=== PATIENT | female | born 1955 | race Caucasian/White ===

== ENCOUNTER 2023-07-03 12:55 | Outpatient (CLI) | payer MEDICARE ==
--- NOTE | 2023-07-03 20:00 | DEXA Report ---
PROCEDURE: Dexa Spine and/or Hip INDICATIONS: POST MENOPAUSAL TECHNIQUE: Dual energy x-ray absorptiometry (DXA) was performed on a [employer] System. Regions measur ed are the AP Spine, femoral neck, and if needed forearm. COMPARISON: None FINDINGS: Lumbar Spine: Bone Mineral Density L1-L4 1.557 g/cm/cm,T score 2.9. Z score 2.4 Left Femoral Neck: Bone Mineral Density 1.031 g/cm/cm, T score -0.1. Z score 0.8. (T score greater or equal to -1.0: NORMAL) (T score from -1.1 to -2.4: OSTEOPENIA) (T score less than or equal to -2.5 to: OSTEOPOROSIS) Impression: By WHO criteria, this patient has normal bone density. Reviewed by: Nohelia Chang MD on 07/03/2023 7:59 PM PST Approved by: Nohelia Chang MD on 07/03/2023 7:59 PM PST Station ID: [id number]
== END 2023-07-03 12:56 | disposition home or self-care (01) ==
LOC: DI 12:55
PROVIDERS: ATTEND Nurse Practitioner Acute Care
DX: Z78.0 Asymptomatic menopausal state (principal)

== ENCOUNTER 2023-07-23 09:09 | Outpatient (CLI) | payer MEDICARE ==
[2023-07-23 16:02] LABS: ESTIMATED AVERAGE GLUCOSE 143 mg/dL (70-100); HEMOGLOBIN A1c% 6.6 % (4.27-6.07)
[2023-07-23 16:20] LABS: URIC ACID 6.3 mg/dL (2.3-6.6)
== END 2023-07-23 09:10 | disposition home or self-care (01) ==
LOC: LAB.S 09:09
PROVIDERS: ATTEND Nurse Practitioner Acute Care
DX: E78.1 Pure hyperglyceridemia (principal); M10.9 Gout, unspecified; Z13.1 Encounter for screening for diabetes mellitus
CPT/HCPCS: 36415; 83036; 84478; 84550

== ENCOUNTER 2023-09-03 13:05 | Outpatient (CLI) | payer MEDICARE ==
[2023-09-03 20:10] LABS: CREATININE,URINE 54.8 mg/dL; MICROALBUM/CREATININE RATIO,UR 85.8 ug/mg (<30.0); MICROALBUMIN,URINE 4.7 mg/dL
[2023-09-03 21:21] LABS: ESTIMATED AVERAGE GLUCOSE 137 mg/dL (70-100); HEMOGLOBIN A1c% 6.4 % (4.27-6.07)
== END 2023-09-03 13:06 | disposition home or self-care (01) ==
LOC: LAB.S 13:05
PROVIDERS: ATTEND Nurse Practitioner Acute Care
DX: E11.8 Type 2 diabetes mellitus with unspecified complications (principal)
CPT/HCPCS: 36415; 82043; 82570; 83036

== ENCOUNTER 2023-09-26 09:21 | Outpatient (CLI) | payer MEDICARE ==
--- NOTE | 2023-09-26 10:35 | CT Report ---
PROCEDURE: Sinus INDICATIONS: PANSINUSITIS TECHNIQUE: Noncontrast 3.0 mm axial images acquired from the frontal sinuses to the mid-sella, with coronal and sagittal reformats. For radiation dose reduction, the following was used: automated exposure control , adjustment of mA and/or kV according to patient size. COMPARISON: None. FINDINGS: Image quality: Excellent. Maxillary Sinuses: No bony remodeling or destruction. Sinuses are clear. Ethmoid Air Cells: No bony remodeling or destruction. Sinuses are clear. Sphenoid Sinuses: No bony remodeling or destruction. Sinuses are clear. Frontal Sinuses: No bony remodeling or destruction. Minimal mucosal thickening can be seen within th e inferior medial frontal sinuses Ostiomeatal Complexes: The ostiomeatal complexes are patent, yet they are constitutionally narrowed, with bilateral Noman cells. Miscellaneous: Visualized intra-orbital contents are normal. No ellen bullosa. No significant na tyler septal deviation. Degenerative change is seen involving the temporomandibular joints, left worse than right. IMPRESSION: No significant active paranasal sinus disease is seen. The ostiomeatal complexes are patent, yet they are constitutionally narrowed, with bilateral Noman c ells. Reviewed by: Hernan Lei MD on 09/26/2023 9:33 AM [facility] Approved by: Hernan Lei MD on 09/26/2023 9:33 AM [facility] Station ID: [id number]
== END 2023-09-26 09:22 | disposition home or self-care (01) ==
LOC: DI 09:21
PROVIDERS: ATTEND Otolaryngology
DX: J34.2 Deviated nasal septum (principal); R51.9 Headache, unspecified; J34.89 Other specified disorders of nose and nasal sinuses

== ENCOUNTER 2023-10-01 11:57 | Outpatient (CLI) | payer MEDICARE ==
[2023-10-01 15:12] LABS: THYROID STIMULATING HORMONE 0.93 uIU/mL (0.34-5.60)
== END 2023-10-01 11:58 | disposition home or self-care (01) ==
LOC: LAB.S 11:57
PROVIDERS: ATTEND Nurse Practitioner Acute Care
DX: Z13.29 Encounter for screening for other suspected endocrine disorder (principal)
CPT/HCPCS: 36415; 84443

== ENCOUNTER 2024-01-11 08:50 | Outpatient (CLI) | payer MEDICARE ==
[2024-01-11 15:12] LABS: BASOPHILS # (AUTO) 0.1 10^3/uL (0.0-0.1); BASOPHILS % (AUTO) 0.7 %; EOSINOPHILS # (AUTO) 0.2 10^3/uL (0.0-0.7); EOSINOPHILS % (AUTO) 2.7 %; HGB - HEMOGLOBIN 13.8 g/dL (12.0-16.0); LYMPHOCYTES # (AUTO) 2.1 10^3/uL (1.5-3.5); LYMPHOCYTES % (AUTO) 28.2 %; MEAN CORPUSCULAR HEMOGLOBIN 29.3 pg (27.0-31.0); MEAN CORPUSCULAR HGB CONC 32.1 g/dL (32.0-36.0); MEAN CORPUSCULAR VOLUME 91.3 fL (81.0-99.0); MEAN PLATELET VOLUME 11.2 fL (7.9-10.8); MONOCYTES # (AUTO) 0.7 10^3/uL (0.0-1.0); MONOCYTES % (AUTO) 9.3 %; NEUTROPHILS # (AUTO) 4.3 10^3/uL (1.5-6.6); NEUTROPHILS % (AUTO) 58.6 %; PLT - PLATELET COUNT 183 10^3/uL (130-450); RED BLOOD COUNT 4.71 10^6/uL (4.20-5.40); RED CELL DISTRIBUTION WIDTH 14.5 % (12.0-15.0); WHITE BLOOD COUNT 7.3 x10^3/uL (4.8-10.8)
[2024-01-11 16:13] LABS: THYROID STIMULATING HORMONE 1.65 uIU/mL (0.34-5.60)
[2024-01-11 16:18] LABS: CREATININE,URINE 53.9 mg/dL; MICROALBUM/CREATININE RATIO,UR 135.4 ug/mg (<30.0); MICROALBUMIN,URINE 7.3 mg/dL
[2024-01-11 16:19] LABS: ALBUMIN 3.9 g/dL (3.2-5.5); ALKALINE PHOSPHATASE 70 IU/L (42-121); ALT ALANINE AMINOTRANSFERASE 21 IU/L (10-60); AST ASPARTATE AMINOTRANSFERASE 12 IU/L (10-42); BILIRUBIN,TOTAL 0.8 mg/dL (0.2-1.0); BUN - BLOOD UREA NITROGEN 20 mg/dL (6-20); CALCIUM 9.4 mg/dL (8.5-10.3); CARBON DIOXIDE - CO2 32 mmol/L (21-32); CHLORIDE 103 mmol/L (101-111); CHOL/HDL RATIO 3.7 (<4.4); CHOLESTEROL 145 mg/dL; CREATININE 0.7 mg/dL (0.6-1.3); GFR - MDRD 83 (>89); GLUCOSE 144 mg/dL (74-104); HDL CHOLESTEROL 39 mg/dL; LDL CHOLESTEROL,CALCULATED 33 mg/dL; LDL/HDL RATIO 0.8 (<4.4); POTASSIUM 4.4 mmol/L (3.5-4.5); SODIUM 141 mmol/L (135-145); TOTAL PROTEIN 5.9 g/dL (6.4-8.9); TRIGLYCERIDES 364 mg/dL (48-352); VLDL CHOLESTEROL 73 mg/dL
[2024-01-11 20:57] LABS: ESTIMATED AVERAGE GLUCOSE 154 mg/dL (70-100)
== END 2024-01-11 08:51 | disposition home or self-care (01) ==
LOC: LAB.S 08:50
PROVIDERS: ATTEND Registered Nurse
DX: E11.8 Type 2 diabetes mellitus with unspecified complications (principal); Z13.228 Encounter for screening for other metabolic disorders; Z13.220 Encounter for screening for lipoid disorders; Z13.29 Encounter for screening for other suspected endocrine disorder; Z13.0 Encounter for screening for diseases of the blood and blood-forming organs and certain disorders involving the immune mechanism
CPT/HCPCS: 36415; 80053; 80061; 82043; 82570; 83036; 83721; 84443; 85025

== ENCOUNTER 2024-02-25 11:35 | Outpatient (CLI) | payer MEDICARE ==
[2024-02-25 14:55] LABS: BASOPHILS % (AUTO) 0.4 %; EOSINOPHILS # (AUTO) 0.2 10^3/uL (0.0-0.7); EOSINOPHILS % (AUTO) 2.4 %; HCT - HEMATOCRIT 41.7 % (37.0-47.0); HGB - HEMOGLOBIN 13.7 g/dL (12.0-16.0); LYMPHOCYTES # (AUTO) 1.5 10^3/uL (1.5-3.5); LYMPHOCYTES % (AUTO) 21.7 %; MEAN CORPUSCULAR HEMOGLOBIN 29.8 pg (27.0-31.0); MEAN CORPUSCULAR HGB CONC 32.9 g/dL (32.0-36.0); MEAN CORPUSCULAR VOLUME 90.7 fL (81.0-99.0); MEAN PLATELET VOLUME 11.5 fL (7.9-10.8); MONOCYTES # (AUTO) 0.5 10^3/uL (0.0-1.0); NEUTROPHILS # (AUTO) 4.8 10^3/uL (1.5-6.6); NEUTROPHILS % (AUTO) 67.9 %; PLT - PLATELET COUNT 209 10^3/uL (130-450); RED CELL DISTRIBUTION WIDTH 14.1 % (12.0-15.0); WHITE BLOOD COUNT 7.1 x10^3/uL (4.8-10.8)
[2024-02-25 15:54] LABS: ALBUMIN 4.1 g/dL (3.2-5.5); ALKALINE PHOSPHATASE 80 IU/L (42-121); ALT ALANINE AMINOTRANSFERASE 26 IU/L (10-60); AST ASPARTATE AMINOTRANSFERASE 14 IU/L (10-42); BILIRUBIN,TOTAL 1.2 mg/dL (0.2-1.0); BUN - BLOOD UREA NITROGEN 17 mg/dL (6-20); CALCIUM 9.4 mg/dL (8.5-10.3); CARBON DIOXIDE - CO2 28 mmol/L (21-32); CHLORIDE 104 mmol/L (101-111); CHOL/HDL RATIO 3.8 (<4.4); CHOLESTEROL 146 mg/dL; CREATININE 0.6 mg/dL (0.6-1.3); GFR - MDRD 99 (>89); GLUCOSE 115 mg/dL (74-104); HDL CHOLESTEROL 38 mg/dL; LDL CHOLESTEROL,CALCULATED 39 mg/dL; POTASSIUM 4.3 mmol/L (3.5-4.5); SODIUM 139 mmol/L (135-145); TOTAL PROTEIN 6.2 g/dL (6.4-8.9); TRIGLYCERIDES 346 mg/dL (48-352); VLDL CHOLESTEROL 69 mg/dL
[2024-02-25 15:58] LABS: CREATININE,URINE 78.8 mg/dL; MICROALBUM/CREATININE RATIO,UR 192.9 ug/mg (<30.0); MICROALBUMIN,URINE 15.2 mg/dL
[2024-02-25 16:06] LABS: THYROID STIMULATING HORMONE 1.77 uIU/mL (0.34-5.60)
[2024-02-25 21:56] LABS: ESTIMATED AVERAGE GLUCOSE 134 mg/dL (70-100); HEMOGLOBIN A1c% 6.3 % (4.27-6.07)
== END 2024-02-25 11:36 | disposition home or self-care (01) ==
LOC: LAB.S 11:35
PROVIDERS: ATTEND Nurse Practitioner Acute Care
DX: E11.8 Type 2 diabetes mellitus with unspecified complications (principal); Z13.228 Encounter for screening for other metabolic disorders; Z13.220 Encounter for screening for lipoid disorders; Z13.1 Encounter for screening for diabetes mellitus; Z13.29 Encounter for screening for other suspected endocrine disorder; Z13.0 Encounter for screening for diseases of the blood and blood-forming organs and certain disorders involving the immune mechanism
CPT/HCPCS: 36415; 80053; 80061; 82043; 82570; 83036; 83721; 84443; 85025

== ENCOUNTER 2024-05-16 10:22 | Outpatient (CLI) | payer MEDICARE | END 2024-05-16 10:23 | disposition home or self-care (01) | LOC: NS 10:22 | PROVIDERS: ATTEND Internal Medicine | DX: Z71.3 Dietary counseling and surveillance (principal); E11.8 Type 2 diabetes mellitus with unspecified complications; Z68.43 Body mass index [BMI] 50.0-59.9, adult | CPT/HCPCS: 97802 ==

== ENCOUNTER 2024-05-21 08:35 | Outpatient (CLI) | payer MEDICARE ==
[2024-05-21 14:45] LABS: BASOPHILS % (AUTO) 0.6 %; EOSINOPHILS # (AUTO) 0.2 10^3/uL (0.0-0.7); EOSINOPHILS % (AUTO) 2.5 %; HCT - HEMATOCRIT 43.8 % (37.0-47.0); HGB - HEMOGLOBIN 14.1 g/dL (12.0-16.0); LYMPHOCYTES # (AUTO) 1.4 10^3/uL (1.5-3.5); LYMPHOCYTES % (AUTO) 21.2 %; MEAN CORPUSCULAR HEMOGLOBIN 29.7 pg (27.0-31.0); MEAN CORPUSCULAR HGB CONC 32.2 g/dL (32.0-36.0); MEAN CORPUSCULAR VOLUME 92.4 fL (81.0-99.0); MEAN PLATELET VOLUME 11.3 fL (7.9-10.8); MONOCYTES # (AUTO) 0.6 10^3/uL (0.0-1.0); MONOCYTES % (AUTO) 8.6 %; NEUTROPHILS # (AUTO) 4.3 10^3/uL (1.5-6.6); NEUTROPHILS % (AUTO) 66.8 %; PLT - PLATELET COUNT 200 10^3/uL (130-450); RED BLOOD COUNT 4.74 10^6/uL (4.20-5.40); RED CELL DISTRIBUTION WIDTH 13.5 % (12.0-15.0); WHITE BLOOD COUNT 6.4 x10^3/uL (4.8-10.8)
[2024-05-21 15:37] LABS: THYROID STIMULATING HORMONE 1.51 uIU/mL (0.34-5.60)
[2024-05-21 15:41] LABS: ALBUMIN/GLOBULIN RATIO 1.7 (1.0-2.2); ALKALINE PHOSPHATASE 78 IU/L (42-121); ALT ALANINE AMINOTRANSFERASE 26 IU/L (10-60); AST ASPARTATE AMINOTRANSFERASE 17 IU/L (10-42); BUN - BLOOD UREA NITROGEN 14 mg/dL (6-20); CALCIUM 9.1 mg/dL (8.5-10.3); CARBON DIOXIDE - CO2 26 mmol/L (21-32); CHLORIDE 105 mmol/L (101-111); CHOL/HDL RATIO 4.8 (<4.4); CHOLESTEROL 158 mg/dL; CREATININE 0.6 mg/dL (0.6-1.3); GFR - MDRD 99 (>89); GLUCOSE 132 mg/dL (74-104); HDL CHOLESTEROL 33 mg/dL; LDL CHOLESTEROL,CALCULATED 59 mg/dL; LDL/HDL RATIO 1.8 (<4.4); POTASSIUM 4.4 mmol/L (3.5-4.5); SODIUM 138 mmol/L (135-145); TOTAL PROTEIN 6.3 g/dL (6.4-8.9); TRIGLYCERIDES 331 mg/dL; URIC ACID 5.2 mg/dL (2.3-6.6); VLDL CHOLESTEROL 66 mg/dL
== END 2024-05-21 08:36 | disposition home or self-care (01) ==
LOC: LAB.S 08:35
PROVIDERS: ATTEND Nurse Practitioner Acute Care
DX: M10.9 Gout, unspecified (principal); Z13.228 Encounter for screening for other metabolic disorders; Z13.220 Encounter for screening for lipoid disorders; Z13.29 Encounter for screening for other suspected endocrine disorder; Z13.0 Encounter for screening for diseases of the blood and blood-forming organs and certain disorders involving the immune mechanism
CPT/HCPCS: 36415; 80053; 80061; 83721; 84443; 84550; 85025